=== PATIENT | female | born 2000 | race Two or more races ===

== ENCOUNTER 2024-11-27 09:15 | Emergency (ER) | payer OTHER, SELFPAY ==
[2024-11-27 09:16] VITALS: BMI 49.6
[2024-11-27 09:23] VITALS: BP 131/89; PULSE 98; RESP 17; TEMP 37.2; O2SAT 96
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
--- NOTE | 2024-11-27 09:32 | XR_ITS ---
Examination: CT cervical spine without contrast 2-D sagittal reconstructions 2-D coronal reconstructions 3-D reconstructions. Exam date and time:November 27, 2024 0948 hours CTDI:vol (mGy) 10.1 DLP: (mGycm) 240 Technique: Multiple 2 mm axial sections of the cervical spine have been obtained. The coronal and sagittal reconstructions have been obtained. 3-D reconstructions have been obtained. Low dose protocols were performed. One or more of the following dose reduction techniques were used; automated exposure control, adjustment of the mA and/or KV according to patient size, use of iterative reconstruction technique. Findings: Axial sections demonstrate intact base of the skull. C1 exhibit satisfactory relationship to the odontoid. No acute cervical vertebral body fracture seen. Alignment posterior spinous processes satisfactory. Impression: No acute cervical fracture.
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
== END 2024-11-27 12:00 | disposition home or self-care (01) ==
PROVIDERS: Emergency Provider Licensed Practical Nurse
DX: S09.90XA Unspecified injury of head, initial encounter (principal); G93.89 Other specified disorders of brain; M54.2 Cervicalgia; V89.9XXA Person injured in unspecified vehicle accident, initial encounter
CPT/HCPCS: 70450; 72125; 99284